=== PATIENT | male | born 1965 | race Caucasian/White ===

== ENCOUNTER 2017-04-02 12:37 | Inpatient (IN) | payer SELFPAY ==
[~2017-04-02] VITALS: Ht 180.3 cm; Wt 107.8 kg
--- NOTE | ~2017-04-02 | ESTC ---
Cardiac Perfusion Imaging Demographics Patient Name MELVA Still Gender Male Patient Number [id number] Race Visit Number [id number] Ethnicity Corporate ID Room Number G6318 Accession Number [id number] Height 71 inches Date of 1965 Weight 237.7 pounds MD Interpreting Pia Lawson Date of study 04/05/2017 Physician Supervising /CHRISTIANP Pia Lawson NM Technologist Charity Caro MD Ordering Physician Pia Lawson Stress MD coffee machine technician Stress ECG Reading Pia Lawson Nurse Doretha Luna Physician point of sale associate Admit Source:Emergency department. Procedure Type: Nuclear Stress Test:Pharmacological, Lexiscan, Cardiolite Stress Test Procedure Start time: 04/05/2017 09:45 Indications: Chest pain. Risk Factors The patient risk factors include:former tobacco use, treated hypertension, diabetes mellitus, last creatinine: 1.1 mg/dl and creatinine clearance: 122.5 ml/min. Conclusions Summary Lexiscan cardiolite with no EKG changes of ischemia. Meium to large inferolateral moderate to severe fixed defect most consistent with prior DC. LVEF:50%. Basal inferior mild hypokinesia. Upper normal to mildly dilated LV. Stress Protocols Resting ECG RSR. Pre-stress physical exam: Un changed. Peak HR:96 bpm HR/BP product:[id number] Peak BP:144/85 mmHg Predicted HR: 170 bpm % of predicted HR: 56 ECG Findings No ECG changes suggestive of ischemia. Arrhythmias No rhythm abnormality. Symptoms SOB. Stress Interpretation Lexiscan with normal HR response.BP did not change much. No chest pain.SOB+. No EKG changes of ischemia. No arrythmias. Imaging Results Applied corrections - Motion correction applied High risk findings Summed scores - Summed stress score: 10 - Summed rest score: 15 - Summed difference score: -5 Stress ejection Ejection fraction:50 % EDV :142 ml ESV :71 ml Stroke volume :71 ml LV mass :163 gr LV size:Enlarged LV Normal LV function Imaging Protocols Rest Stress Isotope:Tc99m Sestamibi IV Isotope: Tc99m Sestamibi IV Isotope dose:14.2 mCi Isotope dose:44 mCi Date:04/05/2017 08:11 Date:04/05/2017 10:03 Technique: SPECT Technique: Gated Supine SPECT Supine IV remains in place after procedure. Procedure Medications - Regadenoson (Lexiscan) 0.4 mg IV over 10-15 sec. I.V. 0.4 mg. Medical History Other Previous Procedures + +----+-------+ !Test name !Date!Remarks! + +----+-------+ !Stress testing with SPECT MPI ! ! ! + +----+-------+ Admission Medications + +------+ + +---------+--------+ !Name !Dosage!Times per day!Start date!Stop date!Details ! + +------+ + +---------+--------+ !Beta Quoc (any) ! ! ! ! ! ! + +------+ + +---------+--------+ !Aspirin (any) ! ! ! ! ! ! + +------+ + +---------+--------+ !Statin (any) ! ! ! ! ! ! + +------+ + +---------+--------+ !Nitrates (iv or buccal)! ! ! ! ! ! + +------+ + +---------+--------+ Admission Data Admission date: 04/02/2017 Admission Time: 14:30 Hospital Status: Inpatient. Signatures dtt: Lulu Palacio dtd: 04/05/17 0945 Physician Self Edit
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
--- NOTE | ~2017-04-02 | ECHO ---
Transthoracic Echocardiography Report (TTE) Demographics Patient Name DAMARIS FRYE Date of Study 04/04/2017 Patient Number [id number] Visit Number [id number] Date of 1965 Room Number G6318 Gender Male Number Age 51 year(s) Referring Pia Lawson Grain Roaster Aleah Boateng RVT Physician MD Charles Still MD Physician Interpreting Pia Lawson Mixer Operator Tablets Physician Supervising Ordering MD/MLP Physician Nurse Stress Banbury Machine Operator Conclusions Contractility Score Summary Normal Left Ventricular contractility was noted. Summary The estimated left ventricular ejection fraction is 55% with normal internal dimension and WM.Mild concentric left ventricular hypertrophy. The LA is mildly dilated. Trivial mitral regurgitation by color Doppler. Trivial tricuspid regurgitation by color Doppler. Procedure Type of Study TTE procedure:2D Echocardiogram. Procedure Date Date: 04/04/2017 Start: 09:30 AM Study Location: Inpatient Portable Technical Quality: Adequate visualization Indications:Chest pain. Appropriate Use Criteria: 9 Patient Status: Routine HR: 78 bpm M-Mode/2D Measurements LV Diastolic Dimension: 4.68 cm LV Systolic Dimension: 3.14 cm LV Septum Diastolic: 1.71 cm LV PW Diastolic: 1.52 cm AO Root Dimension: 2.3 cm Cardiac Output: 4.14 l/min AV Cusp Separation: 2 cm RV Diastolic Dimension: 2.31 cm LVOT: 2 cm LVOT VTI: 16.9 cm RV Base: 2.59 cm LV Stroke volume: 53.07 ml RV Length: 6.35 cm TAPSE: 1.84 cm TDI-S': 12.4 cm/s Doppler Measurements AV Peak Velocity: 1.37 m/s MV Peak E-Wave: 0.79 m/s AV Peak Gradient: 7.51 mmHg MV Peak A-Wave: 0.62 m/s AV Mean Gradient: 4 mmHg MV E/A Ratio: 1.27 LVOT Peak Velocity: 0.74 m/s MV P1/2t: 65 msec PV Peak Velocity: 0.84 m/s E' Septal Velocity: 0.05 m/s PV Peak Gradient: 2.79 mmHg E' Lateral Velocity: 0.09 m/s A' Septal Velocity: 0.1 m/s A' Lateral Velocity: 0.08 m/s Findings Left Ventricle Mild concentric left ventricular hypertrophy with normal EF,internal dimension and WM. Right Ventricle Normal right ventricle structure and function. Left Atrium Mildly dilated LA. Right Atrium Normal right atrial size. Mitral Valve Trivial mitral regurgitation by color Doppler. Aortic Valve Normal aortic valve structure and function. Tricuspid Valve Trivial tricuspid regurgitation by color Doppler. Pulmonic Valve Normal pulmonic valve structure and function. Pericardial Effusion No evidence of pericardial effusion. Miscellaneous Visualized portions of the aortic root and ascending aorta appear normal in size. Pleural Effusion No evidence of pleural effusion. Contractility Score LV regional wall motion:(0-Non visualized 1-Normal 2-Hypokinesis 3-Akinesis 4-Dyskinesis 5-Aneurysm) Signature dtt: Lulu Palacio dtd: 04/04/17 0930 Physician Self Edit
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
--- NOTE | ~2017-04-02 | ENPV ---
Vascular Lower Extremities DVT Study Procedure Demographics Patient Name DAMARIS FRYE Date of Study 04/04/2017 Patient Number [id number] Gender Male Date of 1965 Age 51 Visit Number [id number] Height 71 Accession Number [id number] Weight 241.01 Referring Pia Lawson Interpreting Karl Schumacher MD Physician MD Physician Charles Still MD Physician Ordering Pia Lawson Echo Tech Physician Smoking Pipes Cleaner Aleah Boateng T Conclusions Summary No evidence of deep vein thrombosis or superficial thrombophlebitis in the lower extremities bilaterally . Procedure Type of Study: Veins:Lower Extremities DVT Study, Venous Duplex Lower Extremity Bilateral. Indications for Study:Extended bedrest. Appropriate Use Criteria:9 Patient Status:Routine. Study Location:Inpatient Portable. Technical Quality:Adequate visualization. Velocities are measured in cm/s ; Diameters are measured in cm Right Lower Extremities DVT Study Measurements Right 2D and Doppler Measurements + + + + +------+------+ + !Location !Visualized!Compressibility!Thrombosis!Signal!Reflux!Reflux ! ! ! ! ! ! ! !(sec) ! + + + + +------+------+ + !GSV Thigh !Yes !Yes !None !Phasic!No ! ! + + + + +------+------+ + !Common !Yes !Yes !None !Phasic!No ! ! !Femoral ! ! ! ! ! ! ! + + + + +------+------+ + !Prox !Yes !Yes !None !Phasic!No ! ! !Femoral ! ! ! ! ! ! ! + + + + +------+------+ + !Mid Femoral!Yes !Yes !None !Phasic!No ! ! + + + + +------+------+ + !Dist !Yes !Yes !None !Phasic!No ! ! !Femoral ! ! ! ! ! ! ! + + + + +------+------+ + !Popliteal !Yes !Yes !None !Phasic!No ! ! + + + + +------+------+ + !Gastroc !Yes !Yes !None !Phasic!No ! ! + + + + +------+------+ + !PTV !Yes !Yes !None !Phasic!No ! ! + + + + +------+------+ + !Peroneal !Yes !Yes !None !Phasic!No ! ! + + + + +------+------+ + Left Lower Extremities DVT Study Measurements Left 2D and Doppler Measurements + + + + +------+------+ + !Location !Visualized!Compressibility!Thrombosis!Signal!Reflux!Reflux ! ! ! ! ! ! ! !(sec) ! + + + + +------+------+ + !GSV Thigh !Yes !Yes !None !Phasic!No ! ! + + + + +------+------+ + !Common !Yes !Yes !None !Phasic!No ! ! !Femoral ! ! ! ! ! ! ! + + + + +------+------+ + !Prox !Yes !Yes !None !Phasic!No ! ! !Femoral ! ! ! ! ! ! ! + + + + +------+------+ + !Mid Femoral!Yes !Yes !None !Phasic!No ! ! + + + + +------+------+ + !Dist !Yes !Yes !None !Phasic!No ! ! !Femoral ! ! ! ! ! ! ! + + + + +------+------+ + !Popliteal !Yes !Yes !None !Phasic!No ! ! + + + + +------+------+ + !Gastroc !Yes !Yes !None !Phasic!No ! ! + + + + +------+------+ + !PTV !Yes !Yes !None !Phasic!No ! ! + + + + +------+------+ + !Peroneal !Yes !Yes !None !Phasic!No ! ! + + + + +------+------+ + Signature dtt: SONIA RUDD dtd: 04/04/17 0953 Physician Self Nahed
--- NOTE | ~2017-04-02 | CATH ---
Cardiac Diagnostic Report Demographics Patient Name MELVA Still Gender Male Date of 1965 Age 51 year(s) Patient Number [id number] Date of Study 04/06/2017 Visit Number [id number] Room Number [id number] Corporate ID Ht 180.34 cm Wt 107.8 kg Referring Mayo Still MD Primary Physician Physician Performing Pia Secondary Physician Physician Lulu BAZAN Diagnostic Pia Assisting Physician Physician Lulu BAZAN Interventional Physician Drapery Hanger Physician Findings and Conclusions Diagnostic Findings and Conclusion 1. moderate 1 vessel CAD 2. LVEDP 8 Diagnostic Recommendations Aggressive secondary preventative measures. Procedure Description The patient was brought to the diagnostic cardiac catheterization-EP laboratory in the fasting, non-sedated state. Informed consent was obtained in the written and verbal form after the risks and benefits were explained. The patient had no further questions and agreed to proceed. The planned puncture-incision site(s) were shaved and prepped with ChloraPrep and draped in the usual sterile manner. Conscious sedation, supplemental oxygen, and pain control medications were delivered by a registered nurse under physician guidance. Surface ECG rhythm, blood pressure measurement, and pulse oximetry were monitored throughout the procedure. Arterial access. The access site was infiltrated with lidocaine. The vessel was entered with the Seldinger technique. A sheath was advanced into the vessel and used for catheter placement. Selective left coronary angiography. A catheter was advanced into the left coronary vessel ostium under Fluoroscopic guidance. Contrast was injected by hand. Images were obtained in multiple projections. Selective right coronary angiography. A catheter was advanced into the right coronary vessel ostium under fluoroscopic guidance. Contrast was injected by hand. Images were obtained in multiple projections. Left heart catheterization. A catheter was advanced across the aortic valve to the left ventricle under fluoroscopic guidance. Resting hemodynamics were obtained. Arterial artery hemostasis was achieved. The patient was transferred to a regular nursing floor via cart accompanied by a nurse. The patient left the laboratory in stable condition. Diagnostic Cath Status: Urgent Procedure Procedure Type Diagnostic procedure:Angiography:, Coronary Angios /[facility] Indications: Chest pain. The procedure was explained in detail to the patient. Risks, complications and alternative treatments were reviewed. Written consent was obtained. Medications Reviewed with Patient prior to Procedure. Angiographic Findings Dominance: Left Cardiac Arteries and Lesion Findings LMCA: Normal (0% Stenosis). LAD: mid 50%. Diag. luminal irregularity. Lesion on Mid LAD: Mid subsection.50% stenosis . LCx: Normal (0% Stenosis).Dominant. OM luminal irregularity. RCA: Normal (0% Stenosis).Non-dominant. Coronary Tree Procedure Data Procedure Date Date: 04/06/2017Start: 02:26 PMEnd: 02:51 PM Entry Locations - Retrograde Percutaneous access was performed through the Right Radial artery (Primary location). A 6 Fr sheath was inserted. Hemostasis was successfully obtained using Mechanical Compression. Closure Comments: 16cc's of air in R-band applied by Kenrick MALLORY Procedure Medications Order and Administration + + +--------+--------+ !Time !Medication !Dosage !Route ! + + +--------+--------+ 04/06/2017 02:24 PM !Zofran !4 mg !I.V. ! + + +--------+--------+ 04/06/2017 02:25 PM !Versed !1 mg !I.V. ! + + +--------+--------04/06/2017 02:26 PM !Fentanyl !50 mcg !I.V. ! + + +--------+--------+ !04/06/2017 02:30 PM !Radial Nitroglycerin !200 mcg !I.A. ! + + +--------+--------+ !04/06/2017 02:30 PM !Radial 2% Lidocaine !40 mg !I.A. ! + + +--------+--------+ !04/06/2017 02:49 PM !Heparin (ACC_3) ! !I.V. ! + + +--------+--------+ Devices Used - A6 Fr. BS JR 4 Diag. Catheterwas used for:Right coronary angiography. - A6 Fr. BS JL 3.5 Diag. Catheterwas used for:Left coronary angiography. Contrast Material - Isovue 71889 ml Fluoroscopy Time: Diagnostic: 3:24 minutes. Total: 3:24 minutes. Fluoroscopy Dose: Diagnostic: 934 mGy. Total: 934 mGy. Estimated Blood Loss: 20 ml. Medical History Performed Procedures and Imaging Results - Stress testing with SPECT MPIwas performed. Results were: Positive. Risk/Extent of ischemia was: Unavailable. Risk Factors The patient risk factors include:treated hypertension, diabetes mellitus, last creatinine: 1.1 mg/dl, creatinine clearance: 122.5 ml/min and former tobacco use. Admission Data Admission Date: 04/02/2017 Admission Time: 02:30 PM Admit Source: Emergency department Insurance Payors: None. Admission Medications + +------+------+ + + + + !Medication !Dosage!Times !Last !Last !Administered !Comments ! ! ! !Per !Delivery !Delivery ! ! ! ! ! !Day !Date !Time ! ! ! + +------+------+ + + + + !Beta Quoc! ! ! ! !Yes ! ! !(any) ! ! ! ! ! ! ! + +------+------+ + + + + !Aspirin ! ! ! ! !Yes ! ! !(any) ! ! ! ! ! ! ! + +------+------+ + + + + !Statin (any)! ! ! ! !Yes ! ! + +------+------+ + + + + !Nitrates (iv! ! ! ! !Yes ! ! !or buccal) ! ! ! ! ! ! ! + +------+------+ + + + + Clinical Evaluation Leading to Procedure - The patient's CAD presentation was assessed as: Non-STEMI.The symptom onset was first noted on 04/02/2017 07:00 AM(time was estimated). - Anti-anginal medications were prescribed during the past two weeks. The medication is: Beta Blockers. Hemodynamics Condition: Rest O2 Consumption: Estimated: 263.53Heart Rate: 61 bpm Pressures (mmHg) +-----+ + !Site !Pressure ! +-----+ + !LV !145/1 ,7 ! +-----+ + !LV !155/0 ,6 ! +-----+ + !LV !151/0 ,7 ! +-----+ + !AO !148/87 (112) ! +-----+ + !LV !152/0 ,6 ! +-----+ + Valve Gradients and Areas + +---------+---------+---------+ +---------+ + !Valve !Peak !Mean !Area !Index !Flow !Source ! + +---------+---------+---------+ +---------+ + !Aortic !6 !10 ! ! ! ! ! + +---------+---------+---------+ +---------+ + !Aortic !6 !10 ! ! ! ! ! + +---------+---------+---------+ +---------+ + Shunts Oxygen Values O2 Capacity 197.2 O2 Consumption 263.53 Discharge Data Discharge Date: 04/06/2017 Hospital Status: Inpatient Signatures dtt: Lulu Palacio dtd: 04/06/17 1426 Physician Self Edit
--- NOTE | ~2017-04-02 | DS ---
PATIENT'S NAME: CHRIS FRYE [facility] AGE: 51 Y [address] ROOM: G6318 [place] [address] LOCATION: GPCU ADMIT DATE: 04/02/2017 Discharge Summary DISCHARGE DATE: 04/06/2017 FAMILY PHYSICIAN: Jacob Huber MD ATTENDING PHYSICIAN: Lesli Soto PRINCIPAL DIAGNOSES: 1. Severe dehydration with acute kidney injury, resolved. 2. Hypokalemia, marked, resolved. 3. Diabetes mellitus with ketosis due to severe dehydration with acute kidney injury, resolved. 4. Hyperventilation syndrome with marked respiratory alkalosis, resolved. 5. Jyo-QA-tasqfwbgj myocardial infarction. 6. Posttraumatic stress disorder. 7. Hypertension. 8. A 50% left anterior descending lesion. 9. History of atrial fibrillation/flutter, status post ablation. SUMMARY: Chris is a 51-year-old gentleman who is admitted and was very ill. See the H and P. He was markedly dehydrated with acute kidney injury, acidosis, and ketosis. Blood sugars were very high. He was hydrated, watched his electrolytes very closely, and put him on an aggressive sliding scale with insulin. He improved, potassium replaced intravenously. He also had severe anxiety with hyperventilation, respiratory alkalosis, and that was treated with IV Ativan, which helped immensely. His troponin was noted to be elevated. Cardiology was consulted. Those trended downward and then eventually will normalize. He underwent a stress test on 04/05/2017, which was positive for a fixed defect. He underwent cardiac cath on 04/06/2017, which showed a 50% LAD, nothing that needed intervention. He is much improved, he is up and around, eating and drinking well, and voiding well. His blood sugars have normalized here in the mid 140s to 130s and he is feeling markedly better. He also was noted to have a positive D-dimer and had a negative duplex scan. His echo was within normal limits. Compazine worked well for his nausea. DISMISSAL: Chris is dismissed in much improved condition. He is going to follow a diabetic diet. His activity will be as tolerated, but no use of that right arm for the next 1 week. He will follow up with Dr. Jacob Huber on 04/09/2017, as scheduled, Dr. Hernandez per his recommendations, and Dr. Palacio in about 3 weeks. DISMISSAL MEDICATIONS: 1. Aspirin 325 mg daily. 2. Atorvastatin 80 mg daily. 3. Hydroxyzine 50 mg 1 q.6 h. p.r.n. anxiety. PATIENT'S NAME: CHRIS FRYE [facility] AGE: 51 Y [address] ROOM: [place] [address] LOCATION: GPCU ADMIT DATE: 04/02/2017 Discharge Summary DISCHARGE DATE: 04/06/2017 FAMILY PHYSICIAN: Jacob Huber MD ATTENDING PHYSICIAN: Lesli Soto 4. Zofran 4 mg sublingual q.4 h. p.r.n. nausea. Those are all new and then he will maintain his home meds which include: 1. Neurontin 900 mg at h.s. 2. Minipress 2 mg at h.s. 3. Zoloft 200 mg at h.s. He will let us know sooner if any increasing problems. I do believe the subendocardial WI was related to severity of dehydration. He was notified to take some Zofran as needed for nausea and not wait for days after onset of illness to come in to be seen. If he does not get better in 24 hours, he is to come in. MD FREDY HINOJOSA/[place] /[id number] d: 04/07/177 t: 04/08/17 0739, DISCHARGE SUMMARY
[~2017-04-02 12:37] MED LIST changes: -ASPIRIN325 MG PO; -LIPITOR80 MG PO; -MINIPRESS2 MG PO; -NEURONTIN300 MG PO; -VISTARIL50 MG PO; -ZOFRAN ODT4 MG SL; -ZOLOFT100 MG PO
[2017-04-02 13:01] LABS: BASOPHIL % 0.1 %; HEMOGLOBIN 16.7 g/dL (12.0-17.0); IMMATURE GRANULOCYTE # 0.2 K/uL (0.0-0.3); LYMPHOCYTE # 3.3 K/uL (0.8-4.0); LYMPHOCYTE % 13.5 %; MCH 28.8 pg (27.0-34.0); MCHC 36.3 gm/dL (32.0-36.5); MCV 79.3 fl (83.0-98.0); MONOCYTE # 1.9 K/uL (0.0-1.0); MONOCYTE % 7.8 %; MPV 10.5 fl (9.4-12.4); NEUTROPHIL # (ANC) 18.8 K/uL (1.4-9.0); NEUTROPHIL % 77.6 %; NRBC % 0 /100WBC (0-0.00); PLATELET COUNT 356 K/uL (150-450); RDW-CV 13.6 % (11.9-14.6)
[2017-04-02 13:04] LABS: WBC 24.2 K/uL (4.0-11.0)
[2017-04-02 13:19] LABS: CALCIUM 9.5 mg/dL (8.5-10.5); CREATININE 2.2 mg/dL (0.6-1.3); TOTAL BILIRUBIN 1.2 mg/dL (0.0-1.5); TOTAL PROTEIN 7.4 g/dL (6.0-8.4)
[2017-04-02 13:20] LABS: ANION GAP 21.9 (10.0-19.0); POTASSIUM 2.9 mMol/L (3.7-5.1)
[2017-04-02 13:27] LABS: PCO2 18 mmHg (35-45); PO2 35 mmHg (80-90)
[2017-04-02 13:51] LABS: PCO2 26 mmHg (35-45)
[2017-04-02 13:52] LABS: LACTATE 5.2 mEq/L (0.50-1.60); PO2 24 mmHg (80-90)
[2017-04-02] MEDS ORDERED: NEURONTIN300 MG PO (15:20)
[2017-04-02] MEDS ORDERED: ZOLOFT100 MG PO (15:21)
[2017-04-02] MEDS ORDERED: MINIPRESS2 MG PO (15:21)
--- NOTE | 2017-04-02 15:59 | NUR ---
PT is 51 y/o male admit for hyperglycemia/N/V for . PT alert and oriented x3. Resides at home by himself. States he's been sick with nausea and vomiting for the past 4 days. Hasn't been able to eat or drink much. Came through Ed. Blood sugars in 400's,other lab abnormal as well. See chart. He's also had some abd pain and pressure. Potassium 2.9 in ED. Hx ETOH abuse. Sober for 23 yrs. Allergy to propafol. Red and yellow bracelets on. Pt wishes to be DNR. PT states about a year ago he had an A1c of 7.8 and went on a diet to lose weight after seeing a lab scientist. PT states eventually he was able to stop all of his diabetic meds.
[2017-04-02 20:49] LABS: CALCIUM 8.6 mg/dL (8.5-10.5); CREATININE 1.7 mg/dL (0.6-1.3)
[2017-04-02 20:54] LABS: PROTIME 10.5 SECONDS (9.8-11.4)
[2017-04-02 21:02] LABS: ANION GAP 13.8 (10.0-19.0); POTASSIUM 2.8 mMol/L (3.7-5.1)
[2017-04-02 22:12] LABS: BILIRUBIN URINE NEGATIVE (NEGATIVE); BLOOD URINE 50 /UL (NEGATIVE); COLOR URINE YELLOW (YELLOW); GLUCOSE URINE 1000 mg/dL (NEGATIVE); KETONE URINE NEGATIVE (NEGATIVE); LEUKOCYTES URINE NEGATIVE /UL (NEGATIVE); NITRITE URINE NEGATIVE (NEGATIVE); PROTEIN URINE 15 mg/dL (NEGATIVE); TURBIDITY URINE CLEAR (CLEAR); UROBILINOGEN URINE NORMAL (NORMAL)
[2017-04-02 22:18] LABS: BACTERIA URINE NEGATIVE (NEGATIVE); EPITHELIAL URINE RARE #/HPF (NEGATIVE); RBC URINE RARE #/HPF (NEGATIVE); WBC URINE RARE #/HPF (NEGATIVE)
[2017-04-03 03:23] LABS: BASOPHIL % 0.1 %; EOSINOPHIL % 0.1 %; HEMOGLOBIN 14.1 g/dL (12.0-17.0); IMMATURE GRANULOCYTE # 0.1 K/uL (0.0-0.3); IMMATURE GRANULOCYTE % 0.6 %; LYMPHOCYTE # 3.3 K/uL (0.8-4.0); LYMPHOCYTE % 22.8 %; MCH 28.5 pg (27.0-34.0); MCHC 34.4 gm/dL (32.0-36.5); MONOCYTE # 1.1 K/uL (0.0-1.0); MONOCYTE % 7.6 %; NEUTROPHIL % 68.8 %; NRBC % 0 /100WBC (0-0.00); RBC 4.94 M/uL (4.00-6.00); WBC 14.6 K/uL (4.0-11.0)
[2017-04-03 03:24] LABS: PLATELET COUNT 206 K/uL (150-450)
[2017-04-03 03:40] LABS: ALBUMIN 3.3 gm/dL (3.5-5.0); ANION GAP 10.9 (10.0-19.0); CALCIUM 8.3 mg/dL (8.5-10.5); CREATININE 1.5 mg/dL (0.6-1.3); POTASSIUM 2.9 mMol/L (3.7-5.1); TOTAL BILIRUBIN 0.5 mg/dL (0.0-1.5); TOTAL PROTEIN 6.3 g/dL (6.0-8.4)
--- NOTE | 2017-04-03 04:58 | NUR ---
Significant Event: Pt A&Ox3. VS stable, remains on 3L. Does have hx of anxiety and PTSD, DO NOT EVER WALK UP BEHIND PATIENT! PIV R) hand, heparin gtt @ 1200 units/hr. Next PTT @ 0950. Trops still elevated. K+ 2.9 even after 40mEq given yesterday. Waterman d/t pt unable to urinate. Accuchecks q6 aggressive scale. COUNSELOR [employer] called around shift change d/t c/o chest pain, tachypnea, and blood pressures. Pt received labetolol, ativan, and compazine for nausea. No c/o nausea on shift. If ok'd with Cards, can change diet to clear liquids. Up with SBA. Was on nitro until pressures dropped. Follow up: Continue plan of care. Monitor PTT. Monitor VS.
[2017-04-03 08:38] LABS: CPK 196 IU/L (35-332)
--- NOTE | 2017-04-03 16:57 | NUR ---
PATIENT HAS RESTED THROUGHOUT THE DAY TODAY. COMPLAINED OF NAUSEA X1 LATE THIS AM AND RECEIVED COMPAZINE AND ATIVAN PER DR. JEREZ ORDERS. PATIENT HAS RESTED WELL THROUGHOUT THE DAY. HEP. WAS INCREASED TO 1400 UNITS, NEXT ONE WILL BE AT 1830 TODAY.
[2017-04-03 20:40] LABS: CPK 160 IU/L (35-332)
[2017-04-04 02:11] LABS: BASOPHIL # 0.1 K/uL (0.0-0.2); BASOPHIL % 0.4 %; EOSINOPHIL # 0.1 K/uL (0.0-0.5); EOSINOPHIL % 0.5 %; HEMATOCRIT 43.2 % (37.0-53.0); IMMATURE GRANULOCYTE # 0.1 K/uL (0.0-0.3); IMMATURE GRANULOCYTE % 0.6 %; LYMPHOCYTE # 2.8 K/uL (0.8-4.0); MCH 29.1 pg (27.0-34.0); MCHC 34.7 gm/dL (32.0-36.5); MCV 83.7 fl (83.0-98.0); MONOCYTE # 0.9 K/uL (0.0-1.0); MONOCYTE % 6.6 %; MPV 10.3 fl (9.4-12.4); NEUTROPHIL # (ANC) 9.4 K/uL (1.4-9.0); NEUTROPHIL % 70.9 %; NRBC % 0 /100WBC (0-0.00); PLATELET COUNT 217 K/uL (150-450); RBC 5.16 M/uL (4.00-6.00); RDW-CV 13.7 % (11.9-14.6); WBC 13.2 K/uL (4.0-11.0)
[2017-04-04 02:24] LABS: ANION GAP 10.8 (10.0-19.0); BLOOD UREA NITROGEN 27 mg/dL (6-24); CALCIUM 8.4 mg/dL (8.5-10.5); CHLORIDE 108 mMol/L (96-110); CO2 25 mMol/L (22-32); CREATININE 1.1 mg/dL (0.6-1.3); POTASSIUM 3.8 mMol/L (3.7-5.1); SODIUM 140 mMol/L (135-145)
[2017-04-04 02:56] LABS: ESTIMATED GFR (MDRD EQUATION) > 60
--- NOTE | 2017-04-04 04:37 | NUR ---
Significant Event: Pt A&Ox3. VS stable, remains on 2L. Pt has hx of anxiety and PTSD. PIV RH, heparin @ 1600 units/hr. Next PTT 0950. WBC still slightly elevated, but down from yesterday. Pt had severe dry heaves overnight. Gave compazine and ativan x2. Pt back to NPO status d/t nausea. Possible PE? BLE venous duplex to be done today. D-dimer slightly elevated. Up with SBA. Accuchecks q6, aggressive scale; BS's been better. No c/o chest pain during shift. No c/o pain. Follow up: Venous Duplex. Check PTT. Continue plan of care.
--- NOTE | 2017-04-04 16:54 | NUR ---
Significant Event:SBP 150-170'S. NSR RATES 70'S. WEANED TO RA WITH SATS 96-97%. LUNGS CLEAR/DIM. TOLERATING DIABETIC DIET WITH NO C/O NAUSEA/VOMITING. HEPARIN GTT CONT AT 1700 UNITS/HR WITH PTTHP AT 1630 PENDING. STRESS TEST DELAYED UNTIL TOMORROW MORNING. NPO AFTER MN. AMBULATES IN MAYER SBA/BATHROOM UP AD ERICKA. Follow up: CONT TO MONITOR PER PLAN OF CARE. DISCHARGE 1-2 DAYS?
--- NOTE | 2017-04-04 17:23 | NUR ---
Introduced self and role of care management to pt. He lives in [place] and is currently not working. He states he is good at getting his meds filled at [place] and denies any post discharge needs. WIll assist as needed.
--- NOTE | 2017-04-05 04:24 | NUR ---
Significant events: Pt A/Ox3. SBP upon shift change was 220-250's, IV labetalol given x3. SBP rest of shift 110-140's. On RA. Up SBA. No complaints of pain. No chest pain. No complaints of nausea or vomitting, just that he felt "uncomfortably full" after eating. Heparin gtt continues at 1700 units. NPO since midnight for stress test today. Slept most of shfit. Q6H accuchecks.
--- NOTE | 2017-04-05 17:49 | NUR ---
Significant Event: Patient A/O x 3. Up independently in the room. VSS on RA. Denies pain throughout the day. Become nauseasted around 1315 and very anxious. Notified MD. Gave Compazine and ativan and patient calmed down and denies nausea now. R)hand PIV with heparin infusing at 1700 units/h. Plan for heart cath tomorrow with Dr. Palacio. NPO after 0600 in the morning. Follow up: Continue as per plan of care. Heart cath tomorrow.
--- NOTE | 2017-04-06 04:44 | NUR ---
Significant events: Pt A/Ox3. VSS. No complaints of pain. Heparin gtt continues at 1700. NPO at 0600 for 1400 heart cath today. Slept well this shift. Up SBA. Cooperative with cares.
[2017-04-06 04:58] LABS: BASOPHIL # 0.1 K/uL (0.0-0.2); BASOPHIL % 0.6 %; EOSINOPHIL # 0.2 K/uL (0.0-0.5); EOSINOPHIL % 1.8 %; HEMATOCRIT 43.7 % (37.0-53.0); HEMOGLOBIN 14.5 g/dL (12.0-17.0); IMMATURE GRANULOCYTE # 0.2 K/uL (0.0-0.3); IMMATURE GRANULOCYTE % 1.9 %; LYMPHOCYTE % 24.2 %; MCH 28.4 pg (27.0-34.0); MCHC 33.2 gm/dL (32.0-36.5); MCV 85.7 fl (83.0-98.0); MONOCYTE % 7.8 %; MPV 10.2 fl (9.4-12.4); NEUTROPHIL # (ANC) 7.9 K/uL (1.4-9.0); NEUTROPHIL % 63.7 %; NRBC % 0 /100WBC (0-0.00); PLATELET COUNT 188 K/uL (150-450); RDW-CV 13.9 % (11.9-14.6); WBC 12.5 K/uL (4.0-11.0)
[2017-04-06] MEDS ORDERED: ASPIRIN325 MG PO (20:07)
[2017-04-06] MEDS ORDERED: LIPITOR80 MG PO (20:08)
[2017-04-06] MEDS ORDERED: VISTARIL50 MG PO (20:09)
[2017-04-06] MEDS ORDERED: ZOFRAN ODT4 MG SL (20:10)
--- NOTE | 2017-04-07 01:40 | NUR ---
Patient cleared for dismissal by Dr. Soto after R-band removal. Patient alert/oriented x3. Vital signs were stable. He was on room air. R-band was in place and 2 mL of air were gradually removed until R-band was removed at around 1915. Band-aid and coban wrap were placed on radial site. Site was non-ecchymotic, non-tender, and CSM were WNL. Patient denied any pain. Discharge teaching was done by Valarie (admission nurse). Patient was escorted by Ronaldo Christianson RN to be driven home by his friend at 2030.
== END 2017-04-06 20:30 | disposition disaster alternative care site (69) | DRG 682 ==
LOC: GMED 12:37 → GPCU 14:30
PROVIDERS: Internal Medicine Interventional Cardiology; Physician Assistant Medical; ADMIT Family Medicine
DX: N17.9 Acute kidney failure, unspecified (principal); I21.4 Non-ST elevation (NSTEMI) myocardial infarction; E87.3 Alkalosis; E87.2 Acidosis; E87.6 Hypokalemia; I48.91 Unspecified atrial fibrillation; E86.0 Dehydration; E11.65 Type 2 diabetes mellitus with hyperglycemia; F41.9 Anxiety disorder, unspecified; F41.0 Panic disorder [episodic paroxysmal anxiety]; F43.10 Post-traumatic stress disorder, unspecified; Z90.49 Acquired absence of other specified parts of digestive tract; Z87.891 Personal history of nicotine dependence
CPT/HCPCS: A9500; C1894; J0780; J1200; J1644; J2060; J2250; J2405; J2785; J3010; J3480; J7030; J7050

== ENCOUNTER → 2017-04-02 | Outpatient (CLI) | payer SELFPAY ==
[~2017-04-02] MED LIST: AMARYL2 MG PO; ASPIRIN EC81 MG PO; ASPIRIN325 MG PO; ASPIRIN81 MG PO; CORDARONE,PACE200 MG PO; GLUCOPHAGE500 MG PO; LEVAQUIN500 MG PO; LIPITOR80 MG PO; MAG-OX-400(241400 MG PO; MELOXICAM7.5 MG PO; MINIPRESS2 MG PO; MOBIC15 MG PO; NEURONTIN300 MG PO; NORVASC10 MG PO; NORVASC5 MG PO; OMEPRAZOLE40 MG PO; TOPROL XL25 MG PO; VISTARIL50 MG PO; ZOFRAN ODT4 MG SL; ZOLOFT100 MG PO
== END | disposition disaster alternative care site (69) ==
LOC: GAMB 12:15
DX: R10.84 Generalized abdominal pain (principal); F43.10 Post-traumatic stress disorder, unspecified; R11.2 Nausea with vomiting, unspecified; R07.9 Chest pain, unspecified; R10.2 Pelvic and perineal pain
CPT/HCPCS: A0425; A0427; J2405